=== PATIENT | female | born 1960 | race Caucasian/White ===

== ENCOUNTER 2021-08-19 18:25 | Inpatient (IN) ==
[2021-08-19] MEDS ORDERED: 0.9 % Sodium Chloride 1,000 ML IVC SCH (19:00)
[2021-08-19 19:09] LABS: Basophils % 0.5 %; Eosinophils # 0.1 K/mcL (0.0-0.6); Eosinophils % 1.1 %; Hematocrit 30.2 % (35.3-44.9); Hemoglobin 8.5 g/dL (11.5-15.4); Lymphocytes # 1.5 K/mcL (0.6-4.6); Lymphocytes % 27.1 %; Mean Corpuscular HGB Conc 28.1 g/dL (31.6-35.5); Mean Corpuscular Hemoglobin 26.9 pg (28.0-33.3); Mean Corpuscular Volume 95.6 fL (83.0-100.0); Mean Platelet Volume 9.1 fL (9.4-12.4); Monocytes # 0.4 K/mcL (0.0-1.3); Monocytes % 7.9 %; Neutrophils # 3.4 K/mcL (1.6-8.9); Nucleated Red Blood Cells 0.5 /100 WBC (0); Platelet Count 222 K/mcL (140-400); Red Blood Count 3.16 M/mcL (3.82-4.97); Red Cell Distribution Width 18.1 % (11.5-14.5); Segmented Neutrophils % 61.4 %; White Blood Count 5.5 K/mcL (4.3-11.1)
[2021-08-19 19:41] LABS: Thyroid Stimulating Hormone 0.758 mcIU/mL (0.340-5.600)
[2021-08-19 20:10] LABS: Calcium 7.2 mg/dL (8.6-10.3); Magnesium 2.8 mg/dL (1.6-2.6); Potassium 4.9 mEq/L (3.5-5.1)
[2021-08-19] MEDS ORDERED: Acetaminophen 325 MG TABLET PO PRN (23:00)
[2021-08-19] MEDS ORDERED: Melatonin 3 MG TABLET PO PRN (23:00)
[2021-08-19] MEDS ORDERED: Naloxone 0.4 MG/ML INJ IVP PRN (23:00)
[2021-08-19] MEDS ORDERED: Saliva Stimulant 44.3ml BOTTLE PO PRN (23:03)
[2021-08-19] MEDS ORDERED: *HR* Dextrose 50 % in Water (Syg) 50 ML SYRINGE IVP PRN (23:07)
[2021-08-19] MEDS ORDERED: D5% in Water 1,000 ML IVC PRN (23:07)
[2021-08-19] MEDS ORDERED: Dextrose Gel 15 GM/37.5 ML TUBE PO PRN ×2 (23:07)
[2021-08-20] MEDS: Ipratropium 1 PUFF INHALER IH SCH ×5 (04:05→15:08)
[2021-08-20] MEDS: *HR* Heparin 5,000 UNIT/ML VIAL SQ SCH ×2 (05:58→16:43)
[2021-08-20 07:26] LABS: Basophils % 0.3 %; Hematocrit 31.5 % (35.3-44.9); Immature Granulocytes % 3.3 % (0-4); Lymphocytes # 0.5 K/mcL (0.6-4.6); Lymphocytes % 12.6 %; Mean Corpuscular HGB Conc 28.6 g/dL (31.6-35.5); Mean Corpuscular Hemoglobin 26.9 pg (28.0-33.3); Mean Corpuscular Volume 94.3 fL (83.0-100.0); Mean Platelet Volume 9.4 fL (9.4-12.4); Monocytes % 0.5 %; Nucleated Red Blood Cells 0.5 /100 WBC (0); Platelet Count 237 K/mcL (140-400); Red Blood Count 3.34 M/mcL (3.82-4.97); Red Cell Distribution Width 18.1 % (11.5-14.5); Segmented Neutrophils % 83.3 %; White Blood Count 3.6 K/mcL (4.3-11.1)
[2021-08-20 07:40] LABS: Albumin/Globulin Ratio 0.8 (1.1-2.2); Bilirubin,Total 0.3 mg/dL (0.3-1.0); Calcium 7.3 mg/dL (8.6-10.3); Globulin 3.8 g/dL (2.4-3.5); Lactate Dehydrogenase 156 Units/L (140-271); Magnesium 2.8 mg/dL (1.6-2.6); Phosphorous 7.8 mg/dL (2.7-4.5); Potassium 5.7 mEq/L (3.5-5.1); Total Protein 6.8 g/dL (6.4-8.9)
[2021-08-20 08:01] LABS: ABG Base Excess -4 mEq/L (-2 to 3); ABG HCO3 24 mEq/L (21-27); ABG Oxygen Saturation 63 % (95-98); ABG PCO2 54 mmHg (35-45); ABG PH 7.26 pH Units (7.32-7.45); ABG PO2 38 mmHg (85-104); ABG TCO2 26 mEq/L (20-26)
[2021-08-20] MEDS: Chlorhexidine Rinse 15 ML MOUTHWASH MM SCH ×2 (08:08→11:09)
[2021-08-20] MEDS: Cholecalciferol (D-3) 1,000 UNIT (25MCG) TABLET PO SCH ×2 (08:08→11:09)
[2021-08-20] MEDS: Artificial Tears SOLN 15 ML BOTTLE BOTH EYES SCH ×3 (08:08→15:33)
[2021-08-20] MEDS: Multivit/Ca/Min/Fe/FA 1 TAB TABLET PO SCH ×2 (08:08→11:09)
[2021-08-20] MEDS: Saline Nasal Spray 44 ML BOTTLE NS SCH ×3 (08:08→15:33)
[2021-08-20 08:49] LABS: INR 1.1; Prothrombin Time 11.9 Seconds (9.4-12.1)
[2021-08-20 09:22] LABS: ABG Base Excess -5 mEq/L (-2 to 3); ABG HCO3 23 mEq/L (21-27); ABG Oxygen Saturation 89 % (95-98); ABG PCO2 55 mmHg (35-45); ABG PH 7.23 pH Units (7.32-7.45); ABG PO2 68 mmHg (85-104); ABG TCO2 25 mEq/L (20-26)
[2021-08-20] MEDS ORDERED: *HR* LORazepam 2 MG/ML VIAL IVP ONE ×3 (09:25→16:02)
[2021-08-20] MEDS ORDERED: *HR* LORazepam 2 MG/ML VIAL ONE (09:28)
[2021-08-20] MEDS ORDERED: Budesonide/Formoterol 160/4.5 1 PUFF INH IH SCH (10:00)
[2021-08-20 11:31] VITALS: RESP 19
[2021-08-20 12:44] LABS: ABG Base Excess -4 mEq/L (-2 to 3); ABG HCO3 26 mEq/L (21-27); ABG Oxygen Saturation 89 % (95-98); ABG PCO2 63 mmHg (35-45); ABG PH 7.21 pH Units (7.32-7.45); ABG PO2 69 mmHg (85-104); ABG TCO2 28 mEq/L (20-26)
[2021-08-20 13:47] LABS: C-Reactive Protein 37 mg/L (Less than 10)
[2021-08-20] MEDS ORDERED: Azithromycin 500 MG in 0.9 % Sodium Chloride 250 ML IVPB SCH (14:00)
[2021-08-20] MEDS ORDERED: cefTRIAXone 1,000 MG in 0.9 % Sodium Chloride Mini Bag 100 ML IVP SCH (14:00)
[2021-08-20 14:02] LABS: Ferritin 88 ng/mL (10-120)
[2021-08-20 15:12] VITALS: O2SAT 96
[2021-08-20 15:13] LABS: Calcium 7.1 mg/dL (8.6-10.3); Potassium 5.6 mEq/L (3.5-5.1)
[2021-08-20] MEDS ORDERED: 0.9 % Sodium Chloride 1,000 ML IVC SCH (16:00)
[2021-08-20] MEDS ORDERED: *HR* Dextrose 50 % in Water (Syg) 50 ML SYRINGE IVP ONE (16:10)
[2021-08-20] MEDS ORDERED: Insulin Human Regular 10 UNIT in 0.9 % Sodium Chloride 10 ML IV ONE (16:10)
[2021-08-20 16:30] VITALS: BP 147/76; PULSE 70; TEMP 98.4
[2021-08-20] MEDS ORDERED: Insulin Regular, Human 100 UNIT/ML IV ONE (16:34)
== END 2021-08-20 17:14 | disposition short-term general hospital (02) ==
LOC: EMEROOGRE 18:25 → INPGRE 18:25
PROVIDERS: ADMIT Internal Medicine; ATTEND Internal Medicine